=== PATIENT | female | born 1935 | race Caucasian/White ===

== ENCOUNTER → 2016-07-27 | Outpatient (CLI) | payer OTHER ==
--- NOTE | 2016-07-27 11:31 | REPMRS ---
Patient History The patient states she had a clinical breast exam in December 2015. 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 Family history of breast cancer in maternal grandmother at age 50 or over. Benign stereotactic core biopsy of the left breast, August 29, 2015. Benign core biopsy of the right breast, November 15, 2012. Chemotherapy, 2009. Malignant lumpectomy of the right breast, January 24, 2008. Radiation therapy of the right breast. Digital Mammo Screening Bilat: July 27, 2016 - Exam #: [id number] Bilateral CC and MLO view(s) were taken. Technologist: Shanti Byrne, Technologist Prior study comparison: July 26, 2015, left breast digital mammo diagnostic unilateral performed at [facility]. July 18, 2015, bilateral digital mammo screening bilat performed at [facility]. July 14, 2013, bilateral digital mammo screening bilat performed at [facility]. FINDINGS: There are scattered fibroglandular densities. There has been no change in the appearance of the mammogram from the prior studies. There are stable post treatment changes in the right breast.There is a mild amount of scattered fibroglandular density which is fairly symmetric. There is no interval development of dominant mass, architectural distortion, or clustered microcalcification suggestive of malignancy. ASSESSMENT: BI-RADS/ACR category 2 mammogram. Benign finding(s). Recommendation Routine screening mammogram in 1 year (for women over age 40). This mammogram was interpreted with the aid of an FDA-approved computer-aided dectection system. Electronically Signed By: Jayden Zarate MD 07/27/16 [id number]
== END ==
LOC: M RAD 10:55
PROVIDERS: ATTEND Advanced Practice Midwife
DX: Z12.31 Encounter for screening mammogram for malignant neoplasm of breast (principal); Z78.0 Asymptomatic menopausal state; Z85.3 Personal history of malignant neoplasm of breast; Z92.3 Personal history of irradiation; Z92.21 Personal history of antineoplastic chemotherapy; Z80.3 Family history of malignant neoplasm of breast

== ENCOUNTER → 2017-07-29 | Outpatient (CLI) | payer OTHER | LOC: M RAD 09:44 | DX: Z12.31 Encounter for screening mammogram for malignant neoplasm of breast (principal) | CPT/HCPCS: 77067 ==